=== PATIENT | male | born 1985 | race Hispanic/Latino ===

== ENCOUNTER → 2016-12-31 | Outpatient (CLI) | payer OTHER ==
[2016-12-31 12:17] LABS: CHLORIDE,CL 108 mmol/L (98-110); SODIUM,NA 140 mmol/L (136-146)
== END | disposition home or self-care (01) ==
LOC: MW.CHFP 11:39
PROVIDERS: ATTEND Nurse Practitioner Family
DX: Z00.00 Encounter for general adult medical examination without abnormal findings (principal); E05.90 Thyrotoxicosis, unspecified without thyrotoxic crisis or storm
CPT/HCPCS: 36415; 80053; 80061; 84439; 84443; 84480; 85027

== ENCOUNTER → 2017-01-15 | Outpatient (CLI) | payer OTHER ==
--- NOTE | 2017-01-16 13:11 | NM ---
EXAMINATION: Nuclear medicine I-123 thyroid uptake and scan. CLINICAL HISTORY: Thyrotoxicosis TECHNIQUE: The patient was given 353 mCi of iodine 123 orally and returned at 4 and 24 hours for thy roid uptake measurements. Imaging was performed at 4 hrs in multiple projections. FINDINGS: The images demonstrates homogenous but diffusely increased tracer activity in both thyroid lobes. N o cold or hot nodule by this study. The 4 hours uptake value is 28 % (normal 4 - 20%) and 24 hour u ptake is 45.7 %.(8 - 35%). IMPRESSION: Diffusely increased thyroid uptake values with enlarged thyroid lobes consistent with hyperthyroidis m. No evidence of cold or hot nodules by this study.
== END ==
LOC: MW.NM 11:50
PROVIDERS: ATTEND Nurse Practitioner Family
DX: E05.90 Thyrotoxicosis, unspecified without thyrotoxic crisis or storm (principal)
CPT/HCPCS: 78014; A9516